=== PATIENT | male | born 1985 | race Two or more races ===

== ENCOUNTER → 2021-02-02 | Outpatient (CLI) | payer OTHER ==
--- NOTE | 2021-02-02 17:45 | REPVR ---
PROCEDURE INFORMATION: Exam: MR Lumbar Spine Without Contrast. Exam date and time: 02/02/2021 4:57 PM Age: 35 years old Clinical indication: Low back pain; Additional info: Disc degeneration, R/O stenosis vs hnp TECHNIQUE: Imaging protocol: Multiplanar magnetic resonance images of the lumbar spine without contrast. COMPARISON: No relevant prior studies available. FINDINGS: Vertebrae: Anatomic alignment. No acute fracture seen. The AP spinal canal diameter is mildly diminished on a developmental basis due to shortened pedicles. Spinal cord: The conus medullaris ends normally. Disc desiccation with mild disc height loss and spondylosis at L5-S1. Elsewhere, the intervertebral disc heights are preserved. L1-L2: No significant disc disease. No significant spinal canal stenosis. No neural foraminal stenosis. L2-L3: Mild facet arthropathy. No stenoses. L3-L4: Mild facet arthropathy and ligamentum flavum buckling. No significant central spinal canal stenosis. Slight lateral recess narrowing, probably not significant. The neural foramina are patent. L4-L5: Slight diffuse disc bulge and mild facet arthropathy. No significant central spinal canal stenosis. Lateral recess stenoses are mild. Mild left neural foraminal stenosis. No significant right neural foraminal narrowing. L5-S1: [id number] diffuse disc bulge, facet arthropathy and ligamentum flavum buckling. 3 mm central disc protrusion with high-intensity zone contacts the S1 nerve roots, image 23 series 6. No significant central spinal canal or foraminal stenoses. Soft tissues: Unremarkable. IMPRESSION: 1. Developmental spinal canal narrowing due to shortened pedicles. 2. Mild disc height loss and spondylosis at L5-S1. 3. Mild lateral recess stenoses at L4-L5. Mild left neural foraminal stenosis. 4. A small central disc protrusion at L5-S1 may be cause of S1 distribution radiculopathy. Electronically signed by: Aleena Combs On 02/02/2021 17:45:03 PM
== END ==
LOC: M PLARAD 14:39
PROVIDERS: ATTEND Physician Assistant
DX: M51.36 Other intervertebral disc degeneration, lumbar region (principal)